=== PATIENT | male | born 1965 | race Caucasian/White ===

== ENCOUNTER 2017-02-25 19:26 | Emergency (ER) | payer BC ==
[~2017-02-25] VITALS: Ht 177.8 cm; Wt 108.9 kg
[2017-02-25] MEDS ORDERED: MEDROL DOSEPAK4 MG PO (19:53)
== END 2017-02-25 20:02 | disposition home or self-care (01) ==
LOC: ED 19:26
DX: R21 Rash and other nonspecific skin eruption (principal)

== ENCOUNTER 2017-06-30 19:40 | Emergency (ER) | payer BC ==
[~2017-06-30] VITALS: Ht 177.8 cm; Wt 113.4 kg
[~2017-06-30 19:40] MED LIST: MEDROL DOSEPAK4 MG PO
[2017-06-30] MEDS ORDERED: DELTASONE20 M1 PO (21:46)
[2017-06-30] MEDS ORDERED: ZITHROMAX250 MG PO (21:46)
== END 2017-06-30 22:58 | disposition home or self-care (01) ==
LOC: ED 19:40
DX: J40 Bronchitis, not specified as acute or chronic (principal)

== ENCOUNTER 2018-09-17 21:42 | Emergency (ER) | payer OTHER ==
[~2018-09-17] VITALS: Ht 177.8 cm; Wt 106.6 kg
--- NOTE | ~2018-09-17 | EKG ---
[place], [place] ELECTROCARDIOGRAM REPORT NAME: SUNITA CLARK UNIT #: [id number] ROOM: DOCTOR: EPIPHANY DRAFT REPORT BIRTHDATE: [birth year] [facility] Test Date: 2018-09-17 Test Time: 21:45:20 Pat Name: SUNITA CLARK Department: Room: Gender: [employer]: [place] : 1965 Requested By: KAROLINA LEDESMA Order Number: [id number] Reading MD: Yaniv Mishra MD Measurements Intervals [place] Rate: 74 P: 39 WA: 174 QRS: 19 QRSD: 97 T: 17 QT: 373 QTc: 414 Interpretive Statements Sinus rhythm Low voltage, extremity leads Electronically Signed On 09-18-2018 12:42:51 PDT by Yaniv Mishra MD CM:EKGRPT:ELECTROCARDIOGRAM REPORT [id number] KAROLINA TRACY DRAFT REPORT KAROLINA LEDESMA DO
[~2018-09-17 21:42] MED LIST changes: +DELTASONE20 M1 PO; +ZITHROMAX250 MG PO
[2018-09-17] MEDS ORDERED: TOPAMAX50 MG PO (21:57)
[2018-09-17 21:59] LABS: BASO # 0.1 10*3/uL (0.0-0.1); BASO % 0.6 % (0.0-1.0); EOS # 0.5 10*3/uL (0.0-0.4); EOS % 4.2 % (1.0-4.0); HEMATOCRIT 44.1 % (42.0-52.0); HEMOGLOBIN 15.3 g/dl (14.0-18.0); LYMPH # 3.6 10*3/uL (1.3-4.4); MEAN CELL VOLUME 88.6 fl (80.0-94.0); MEAN CORPUSCULAR HGB 30.7 pg (27.0-31.0); MEAN CORPUSCULAR HGB CONC 34.7 g/dl (33.0-37.0); MEAN PLATELET VOLUME 10.6 fl (9.6-12.3); MONO # 0.6 10*3/uL (0.1-1.0); MONO % 5.9 % (3.0-9.0); NEUT # 5.9 10*3/uL (2.3-7.9); NEUT % 54.7 % (47.0-73.0); PLATELET COUNT AUTOMATED 308 10*3/uL (130-400); RED BLOOD COUNT 4.98 10*6/uL (4.50-5.90); RED CELL DISTRI WIDTH 12.1 % (0-14.5); WHITE BLOOD COUNT 10.7 10*3/uL (4.8-10.8)
[2018-09-17 22:11] LABS: ACT PARTIAL THROMBO TIME 23.4 SECONDS (20.8-31.5); INTERNATIONAL NORM RATIO 0.9 (2.0-3.5)
[2018-09-17 22:33] LABS: ALBUMIN 3.8 gm/dl (3.1-4.5); ALKALINE PHOSPHATASE 130 U/L (45-117); BUN 23 mg/dl (7-24); CHLORIDE 106 mmol/L (98-107); POTASSIUM 3.5 mmol/L (3.5-5.1); SGOT/AST 23 IU/L (3-35); SGPT/ALT 38 U/L (12-78); SODIUM 140 mmol/L (136-145); TOTAL PROTEIN 7.6 gm/dL (6.4-8.2)
[2018-09-17 22:34] LABS: TROPONIN I < 0.015 ng/ml (<0.045)
[2018-09-17] MEDS ORDERED: PREDNISONE20 M1 PO (23:37)
[2018-11-18] MEDS ORDERED: CEPHALEXIN500 M1 PO (18:42)
[2018-11-18] MEDS ORDERED: PREDNISONE10 MG PO (18:47)
== END 2018-09-18 00:25 | disposition home or self-care (01) ==
LOC: ED 21:42
PROVIDERS: Student in an Organized Health Care Education/Training Program
DX: R09.1 Pleurisy (principal); Z79.899 Other long term (current) drug therapy

== ENCOUNTER 2019-07-29 23:25 | Emergency (ER) | payer OTHER ==
[~2019-07-29] VITALS: Ht 177.8 cm; Wt 106.6 kg
[~2019-07-29 23:25] MED LIST changes: +CEPHALEXIN500 M1 PO; +PREDNISONE10 MG PO; +PREDNISONE20 M1 PO; +TOPAMAX50 MG PO
[2019-07-30] MEDS ORDERED: PREDNISONE20 M1 PO (00:50)
[2019-07-30] MEDS ORDERED: PROAIR HFA8.5 GM INH (00:50)
== END 2019-07-30 01:23 | disposition home or self-care (01) ==
LOC: ED 23:25
DX: T59.811A Toxic effect of smoke, accidental (unintentional), initial encounter (principal); G43.909 Migraine, unspecified, not intractable, without status migrainosus; Z79.899 Other long term (current) drug therapy; Y92.096 Garden or yard of other non-institutional residence as the place of occurrence of the external cause

== ENCOUNTER 2019-10-04 00:56 | Emergency (ER) | payer BC ==
[~2019-10-04] VITALS: Ht 180.3 cm; Wt 104.3 kg
[~2019-10-04 00:56] MED LIST changes: +PROAIR HFA8.5 GM INH
[2019-10-04] MEDS ORDERED: CLARITIN10 MG PO (03:23)
[2019-10-05] MEDS ORDERED: PREDNISONE50 MG PO (13:35)
== END 2019-10-04 03:40 | disposition home or self-care (01) ==
LOC: ED 00:56
DX: J45.909 Unspecified asthma, uncomplicated (principal); G43.909 Migraine, unspecified, not intractable, without status migrainosus; Z79.899 Other long term (current) drug therapy; Z79.2 Long term (current) use of antibiotics

== ENCOUNTER 2019-10-05 11:19 | Emergency (ER) | payer BC ==
[~2019-10-05] VITALS: Ht 177.8 cm; Wt 108.9 kg
[~2019-10-05 11:19] MED LIST changes: +CLARITIN10 MG PO
[2019-10-05 12:21] LABS: BASO # 0.1 10*3/uL (0.0-0.1); EOS # 1.2 10*3/uL (0.0-0.4); EOS % 14.4 % (1.0-4.0); HEMATOCRIT 45.9 % (42.0-52.0); HEMOGLOBIN 15.9 g/dl (14.0-18.0); LYMPH % 24.4 % (27.0-41.0); MEAN CELL VOLUME 87.8 fl (80.0-94.0); MEAN CORPUSCULAR HGB 30.4 pg (27.0-31.0); MEAN CORPUSCULAR HGB CONC 34.6 g/dl (33.0-37.0); MEAN PLATELET VOLUME 10.6 fl (9.6-12.3); MONO # 0.5 10*3/uL (0.1-1.0); MONO % 6.2 % (3.0-9.0); NEUT # 4.4 10*3/uL (2.3-7.9); NEUT % 53.5 % (47.0-73.0); PLATELET COUNT AUTOMATED 285 10*3/uL (130-400); RED BLOOD COUNT 5.23 10*6/uL (4.50-5.90); RED CELL DISTRI WIDTH 12.1 % (0-14.5); WHITE BLOOD COUNT 8.2 10*3/uL (4.8-10.8)
[2019-10-05 12:31] LABS: ACT PARTIAL THROMBO TIME 26.1 SECONDS (20.0-32.1)
[2019-10-05 12:35] LABS: ALBUMIN 3.9 gm/dl (3.1-4.5); ALKALINE PHOSPHATASE 125 U/L (45-117); BUN 11 mg/dl (7-24); CHLORIDE 110 mmol/L (98-107); CREATININE 1.12 mg/dL (0.70-1.30); LIPASE 205 U/L (73-393); POTASSIUM 3.8 mmol/L (3.5-5.1); SGOT/AST 20 IU/L (3-35); SGPT/ALT 39 U/L (12-78); SODIUM 138 mmol/L (136-145); TOTAL PROTEIN 7.5 gm/dL (6.4-8.2)
[2019-10-05 12:39] LABS: TROPONIN I < 0.015 ng/ml (<0.045)
[2019-10-05] MEDS ORDERED: PREDNISONE50 MG PO (13:35)
== END 2019-10-05 13:57 | disposition home or self-care (01) ==
LOC: ED 11:19
PROVIDERS: Emergency Medicine
DX: J06.9 Acute upper respiratory infection, unspecified (principal); G43.909 Migraine, unspecified, not intractable, without status migrainosus; Z79.899 Other long term (current) drug therapy; Z79.2 Long term (current) use of antibiotics

== ENCOUNTER 2020-04-13 10:14 | Emergency (ER) | payer BC ==
[~2020-04-13] VITALS: Ht 177.8 cm; Wt 1152.1 kg
[~2020-04-13 10:14] MED LIST changes: +PREDNISONE50 MG PO
[2020-04-13] MEDS ORDERED: CIPRO500 MG PO (10:25)
== END 2020-04-13 10:45 | disposition home or self-care (01) ==
LOC: ED 10:14
DX: S91.332A Puncture wound without foreign body, left foot, initial encounter (principal); W22.8XXA Striking against or struck by other objects, initial encounter; Y93.89 Activity, other specified; Y92.89 Other specified places as the place of occurrence of the external cause; Y99.8 Other external cause status

== ENCOUNTER 2021-01-16 18:59 | Emergency (ER) | payer OTHER ==
[~2021-01-16] VITALS: Ht 180.3 cm; Wt 108.9 kg
[~2021-01-16 18:59] MED LIST changes: +CIPRO500 MG PO
[2021-01-16] MEDS ORDERED: PREDNISONE20 M1 PO (23:48)
== END 2021-01-17 00:11 | disposition home or self-care (01) ==
LOC: ED 18:59
DX: S86.912A Strain of unspecified muscle(s) and tendon(s) at lower leg level, left leg, initial encounter (principal); M77.32 Calcaneal spur, left foot; Z79.899 Other long term (current) drug therapy; Z79.2 Long term (current) use of antibiotics; X50.9XXA Other and unspecified overexertion or strenuous movements or postures, initial encounter; Y93.01 Activity, walking, marching and hiking; Y92.89 Other specified places as the place of occurrence of the external cause; Y99.8 Other external cause status

== ENCOUNTER 2021-06-26 19:52 | Emergency (ER) | payer OTHER ==
[~2021-06-26] VITALS: Ht 177.8 cm; Wt 106.6 kg
[2021-06-26 20:16] LABS: BASO # 0.1 10*3/uL (0.0-0.1); BASO % 0.8 % (0.0-1.0); EOS # 1.1 10*3/uL (0.0-0.4); EOS % 11.3 % (1.0-4.0); HEMATOCRIT 44.4 % (42.0-52.0); LYMPH # 3.5 10*3/uL (1.3-4.4); LYMPH % 36.7 % (27.0-41.0); MEAN CELL VOLUME 86.7 fl (80.0-94.0); MEAN CORPUSCULAR HGB 30.1 pg (27.0-31.0); MEAN CORPUSCULAR HGB CONC 34.7 g/dl (33.0-37.0); MEAN PLATELET VOLUME 10.6 fl (9.6-12.3); MONO # 0.8 10*3/uL (0.1-1.0); MONO % 8.7 % (3.0-9.0); NEUT % 42.2 % (47.0-73.0); PLATELET COUNT AUTOMATED 334 10*3/uL (130-400); RED BLOOD COUNT 5.12 10*6/uL (4.50-5.90); RED CELL DISTRI WIDTH 12.1 % (0-14.5); WHITE BLOOD COUNT 9.5 10*3/uL (4.8-10.8)
[2021-06-26 20:28] LABS: BUN 13 mg/dl (7-24); CHLORIDE 110 mmol/L (98-107); POTASSIUM 4.1 mmol/L (3.5-5.1); SODIUM 140 mmol/L (136-145)
[2021-06-26] MEDS ORDERED: PREDNISONE20 M1 PO (20:43)
[2021-06-26] MEDS ORDERED: ZITHROMAX250 MG PO (20:43)
== END 2021-06-26 21:02 | disposition home or self-care (01) ==
LOC: ED 19:52
PROVIDERS: Internal Medicine
DX: J44.0 Chronic obstructive pulmonary disease with (acute) lower respiratory infection (principal); Z79.899 Other long term (current) drug therapy; Z79.2 Long term (current) use of antibiotics

== ENCOUNTER 2022-09-02 18:44 | Emergency (ER) | payer OTHER ==
[~2022-09-02] VITALS: Ht 177.8 cm; Wt 106.6 kg
== END 2022-09-02 20:47 | disposition home or self-care (01) ==
LOC: ED 18:44
DX: J02.9 Acute pharyngitis, unspecified (principal); Z79.899 Other long term (current) drug therapy

== ENCOUNTER 2024-04-14 16:36 | Emergency (ER) | payer OTHER ==
[~2024-04-14] VITALS: Ht 180.3 cm; Wt 99.8 kg
[2024-04-14] MEDS ORDERED: Bacitracin Zinc 14 GM TUBE T ONE (18:30)
== END 2024-04-14 19:17 | disposition home or self-care (01) ==
LOC: ED 16:36
DX: L91.8 Other hypertrophic disorders of the skin (principal)

== ENCOUNTER 2024-06-25 15:02 | Emergency (ER) | payer OTHER ==
[~2024-06-25] VITALS: Ht 177.8 cm; Wt 108.9 kg
[2024-06-25] MEDS ORDERED: AVPAK AZITHROM250 MG PO (18:03)
== END 2024-06-25 18:17 | disposition home or self-care (01) ==
LOC: ED 15:02
DX: J40 Bronchitis, not specified as acute or chronic (principal); Z20.822 Contact with and (suspected) exposure to COVID-19; G43.909 Migraine, unspecified, not intractable, without status migrainosus

== ENCOUNTER 2024-07-19 18:45 | Emergency (ER) | payer OTHER ==
[~2024-07-19] VITALS: Wt 99.8 kg
[~2024-07-19 18:45] MED LIST changes: +AVPAK AZITHROM250 MG PO
[2024-07-19] MEDS ORDERED: MONTELUKAST SOD10 MG PO (19:04)
[2024-07-19] MEDS ORDERED: ALBUTEROL HFA 90MCG INH (19:05)
[2024-07-19] MEDS ORDERED: Acetaminophen/Hydrocodone 5 MG/325 MG TABLET PO ONE (19:15)
[2024-07-19] MEDS ORDERED: HYDROCODONE-AC1 EAC1 PO (20:59)
== END 2024-07-19 21:12 | disposition home or self-care (01) ==
LOC: ED 18:45
DX: S22.32XA Fracture of one rib, left side, initial encounter for closed fracture (principal); S42.402A Unspecified fracture of lower end of left humerus, initial encounter for closed fracture; G43.909 Migraine, unspecified, not intractable, without status migrainosus; F41.9 Anxiety disorder, unspecified; Z87.442 Personal history of urinary calculi; W01.198A Fall on same level from slipping, tripping and stumbling with subsequent striking against other object, initial encounter; Y93.89 Activity, other specified; Y92.009 Unspecified place in unspecified non-institutional (private) residence as the place of occurrence of the external cause; Y99.8 Other external cause status